=== PATIENT | female | born 1995 | race Caucasian/White ===

== ENCOUNTER 2018-06-27 01:00 | Emergency (ER) | payer OTHER ==
[2018-06-27 01:07] VITALS: BP 112/65
[2018-06-27 01:54] LABS: RBCS (WET MOUNT) FEW RBCS SEEN; T.VAGINALIS (WET MOUNT) NO TRICHOMONAS SEEN; WBCS (WET MOUNT) NO WBCS SEEN; YEAST (WET MOUNT) NO YEAST SEEN
[2018-06-27 02:08] LABS: APPEARANCE,URINE SLIGHTLY-CLOUDY; BILIRUBIN,URINE NEGATIVE (NEGATIVE); COLOR,URINE YELLOW; GLUCOSE, URINE NEGATIVE (NEGATIVE); KETONES,URINE NEGATIVE (NEGATIVE); LEUKOCYTE ESTERASE,URINE NEGATIVE (NEGATIVE); NITRITE,URINE NEGATIVE (NEGATIVE); PROTEIN,URINE NEGATIVE (NEGATIVE); URINE SPECIFIC GRAVITY 1.023; UROBILINOGEN,URINE NEGATIVE mg/dL (<2.0)
--- NOTE | 2018-06-27 02:46 | ER Document Report ---
ED General - General Chief Complaint: Vaginal Pain Stated Complaint: VAGINAL PROBLEM Time Seen by Provider: 06/27/18 01:30 Notes: Patient is a 22-year-old female without chronic medical problems who presents with postcoital pain. Patient reports that after having intercourse she had an episode of urination after which she began to develop severe burning in her urethra. She states that she then developed generalized vaginal pain. Describe s the pain as a severe, throbbing, constant pain that has diminished significantly since onset. No obvious exacerbating or alleviating factor. She denies any history of the same. Denies any vaginal bleeding or vaginal discharge. She is monogamous with her partner. Does not use any form of barrier protection or control. TRAVEL OUTSIDE OF THE [place] IN LAST 30 DAYS: No Past Medical History - General Information source: Patient - Social History Smoking Status: Never Smoker Frequency of alcohol use: None Drug Abuse: None Lives with: Spouse/Significant other Family History: Reviewed & Not Pertinent Review of Systems - Review of Systems Notes: Constitutional: Negative for fever. HENT: Negative for sore throat. Eyes: Negative for visual changes. Cardiovascular: Negative for chest pain. Respiratory: Negative for shortness of breath. Gastrointestinal: Negative for abdominal pain, vomiting or diarrhea. Genitourinary: positive for dysuria and vaginal discomfort Musculoskeletal: Negative for back pain. Skin: Negative for rash. Neurological: Negative for headaches, weakness or numbness. 10 point ROS negative except as marked above and in HPI. Physical Exam - Vital signs Vitals: Temp Pulse Resp BP Pulse Ox 98 F 75 16 112/65 100 06/27/18 01:04 06/27/18 01:04 06/27/18 01:04 06/27/18 01:04 06/27/18 01:04 Interpretation: Normal Notes: PHYSICAL EXAMINATION: GENERAL: Well-appearing, well-nourished and in no acute distress. HEAD: Atraumatic, normocephalic. EYES: Pupils equal round and reactive to light, extraocular movements intact, sclera anicteric, conjunctiva are normal. ENT: nares patent, oropharynx clear without exudates. Moist mucous membranes. NECK: Normal range of motion, supple without lymphadenopathy LUNGS: Breath sounds clear to auscultation bilaterally and equal. No wheezes rales or rhonchi. HEART: Regular rate and rhythm without murmurs ABDOMEN: Soft, nontender, normoactive bowel sounds. No guarding, no rebound. No masses appreciated. EXTREMITIES: Normal range of motion, no pitting or edema. No cyanosis. NEUROLOGICAL: No focal neurological deficits. Moves all extremities spontaneously and on command. PSYCH: Normal mood, normal affect. SKIN: Warm, Dry, normal turgor, no rashes or lesions noted. Course - Re-evaluation Re-evalutation: 06/27/18 02:43 Patient presents with postcoital vaginal pain and dysuria. Patient states the symptoms are diminished significantly since she initially had the pain. Urinalysis is clear with exception of some mild hematuria. The patient declines a pelvic examination which I did report to her would be required for complete assessment of her complaint. She understands that I cannot provide a complete assessment without this exam and declines. The nurse did have the patient self swab prior to my assessment and these are noted to be normal although gonorrhea chlamydia are pending at this time. At this time will discharge with return precautions and follow-up recommendations. Verbal discharge instructions given a the bedside and opportunity for questions given. Patient is in agreement with this plan and has verbalized understanding of return precautions and the need for primary care follow-up in the next 24-72 hours. - Vital Signs Vital signs: Temp Pulse Resp BP Pulse Ox 98 F 75 16 112/65 100 06/27/18 01:04 06/27/18 01:04 06/27/18 01:04 06/27/18 01:04 06/27/18 01:04 - Laboratory Laboratory results interpreted by me: 06/27/18 01:45 Urine Blood MODERATE H Discharge - Discharge Clinical Impression: Postcoital pain, Vaginal pain Condition: Good Disposition: HOME, SELF-CARE Additional Instructions: The exact cause of your symptoms is uncertain. I would advise pelvic rest until you are not having any symptoms. Your urine studies show some blood in your urine but otherwise unremarkable. Return for any additional concerns you may have.
[2018-06-27 03:22] LABS: CHLAM PCR NOT DETECTED (NOT DETECT); GON PCR NOT DETECTED (NOT DETECT)
== END 2018-06-27 02:51 | disposition home or self-care (01) ==
LOC: ER 01:00
DX: R10.2 Pelvic and perineal pain (principal); R30.0 Dysuria; R31.9 Hematuria, unspecified
CPT/HCPCS: 81001; 81025; 87210; 87491; 87591; 99283